=== PATIENT | female | born 1955 | race Caucasian/White ===

== ENCOUNTER → 2019-11-05 13:03 | Outpatient (BNVA) | payer OTHER, SELFPAY | PROVIDERS: Family Provider Nurse Practitioner Family; PCP Family Medicine; Visit Provider Internal Medicine Rheumatology | DX: M05.79 Rheumatoid arthritis with rheumatoid factor of multiple sites without organ or systems involvement (principal); Z79.899 Other long term (current) drug therapy; Z11.59 Encounter for screening for other viral diseases; Z11.1 Encounter for screening for respiratory tuberculosis; M19.041 Primary osteoarthritis, right hand; M19.042 Primary osteoarthritis, left hand | CPT/HCPCS: 36415; 80076; 82306; 82565; 85025; 85651; 86140; 86480; 86704; 86803; 87340; 99204 ==

== ENCOUNTER 2019-11-15 10:29 | Outpatient (CLI) | payer MEDICARE, SELFPAY ==
--- NOTE | 2019-11-15 10:41 | XR_ITS ---
WS: [id number] Right foot, 3 views, 11/15/2019 Clinical Data: rheumatoid arthritis Comparison: Right foot, 08/03/2010. Findings: There is osteoarthritic change of the right first MP joint with cyst formation of the distal medial a spect of the first metatarsal. There is minimal cyst formation of the distal right fifth metatarsal. Minimal cyst formation of the medial talus as it articulates with the navicular is seen. The remainde r of the joints is normal. There is no periarticular demineralization or calcifications. No fractures or dislocations are present. XR/XR foot RT min 3V* [id number] Impression: Osteoarthritic change of the right first MP joint and of the distal right fifth metatarsal.
--- NOTE | 2019-11-15 10:41 | XR_ITS ---
WS: [id number] Left hand, 3 views, 11/15/2019 Clinical Data: rheumatoid arthritis Comparison: Left hand, 08/03/2010. Findings: There is minimal narrowing of the left first MP joint but it has not changed. The remainder of the joint spaces are normal. There are no fractures or dislocations. No periarticular demineraliz ation or calcifications are noted. XR/XR hand LT min 3V* [id number] Impression: Minimal narrowing of the left first MP joint unchanged.
--- NOTE | 2019-11-15 10:41 | XR_ITS ---
WS: [id number] Right hand, 3 views, 11/15/2019 Clinical Data: rheumatoid arthritis Comparison: Right hand, 08/03/2010 Findings: Little change has occurred since the examination of 9 years ago. There is minimal narrowing of the right first MTP joint. The right second and third PIP joints show mild narrowing. No periarti cular demineralization or calcifications are seen. There are no fractures or dislocations. XR/XR hand RT min 3V* [id number] Impression: No change in minimal narrowing at the right first MP joint and the second and t hird DIP joints of the right hand.
--- NOTE | 2019-11-15 10:41 | XR_ITS ---
WS: [id number] Left foot, 3 views, 11/15/2019 Clinical Data: rheumatoid arthritis Comparison: Left foot, 07/12/2012. Findings: There is erosion of the medial distal left first metatarsal and also of the medial proximal base of t he left first proximal phalanx consistent with a bunion. There is narrowing of the left first MP join t. There is cyst formation at the head of the left fifth metatarsal. No periarticular demineralizatio n or erosion is seen. There are no fractures or dislocations. XR/XR foot LT min 3V* [id number] Impression: 1. Bunion at head of left first metatarsal. 2. Cyst formation of the distal left fifth metatarsal.
--- NOTE | 2019-11-15 10:41 | XR_ITS ---
WS: [id number] Chest 2 views, 11/15/2019 Clinical Data: rheumatoid arthritis Comparison: PA and lateral chest, 05/12/2015. Findings: The right lung nodule overlying the right seventh rib and interspace has not changed in siz e or appearance. No other nodules or masses are seen. There is a small scar in the left upper lobe sl ightly decreased in size. The heart is slightly enlarged. The pulmonary vascularity is not increased. No pneumonia or pneumothorax is seen. XR/XR chest 2V* [id number] Impression: 1. No change in right lung pulmonary nodule. 2. Slight decrease in left upper lobe scar.
== END 2019-11-15 10:30 | disposition home or self-care (01) ==
LOC: RADWPI 10:36
PROVIDERS: Family Provider Family Medicine; PCP Family Medicine; Visit Provider Internal Medicine Rheumatology
DX: M05.9 Rheumatoid arthritis with rheumatoid factor, unspecified (principal); M21.612 Bunion of left foot
CPT/HCPCS: 71046; 73130; 73630

== ENCOUNTER → 2019-12-13 11:21 | Outpatient (BNVA) | payer MEDICARE, SELFPAY | PROVIDERS: Family Provider Family Medicine; PCP Family Medicine; Visit Provider Internal Medicine Rheumatology | DX: M05.79 Rheumatoid arthritis with rheumatoid factor of multiple sites without organ or systems involvement (principal); Z79.899 Other long term (current) drug therapy; M19.041 Primary osteoarthritis, right hand; M19.042 Primary osteoarthritis, left hand | CPT/HCPCS: 99214 ==

== ENCOUNTER → 2022-05-25 14:42 | Outpatient (BNVA) | payer MEDICARE, SELFPAY | PROVIDERS: Family Provider Family Medicine; PCP Family Medicine; Visit Provider Nurse Practitioner Family | DX: Z20.822 Contact with and (suspected) exposure to COVID-19 (principal); J02.9 Acute pharyngitis, unspecified | CPT/HCPCS: 87426; 87880 ==

== ENCOUNTER 2022-06-14 14:00 | Outpatient (CLI) | payer MEDICARE, SELFPAY ==
--- NOTE | 2022-06-14 14:49 | MM_ITS ---
WS: [id number] BILATERAL 3D TOMOSYNTHESIS DIGITAL SCREENING MAMMOGRAPHY WITH CAD CLINICAL INFORMATION: SCREENING HISTORY: Screening mammogram. LEFT breast pain and soreness TECHNIQUE: Bilateral CC and MLO views. FINDINGS: The breasts are composed of heterogeneous fibroglandular density tissue, which can limit the detectio n of small underlying mass lesions. No suspicious mass, asymmetry, calcifications, or architectural d istortion. No evidence of malignancy. Vascular calcification. A few incidental punctate calcification s. MM/[place] [id number] IMPRESSION: BI-RADS: 2-Benign FOLLOW UP: 1 Year Follow-up Recommend return to annual screening mammography.
== END 2022-06-14 14:01 | disposition home or self-care (01) ==
LOC: RAD 14:02
PROVIDERS: PCP Family Medicine; Visit Provider Family Medicine
DX: Z12.31 Encounter for screening mammogram for malignant neoplasm of breast (principal)
CPT/HCPCS: 77063; 77067

== ENCOUNTER → 2023-12-21 10:45 | Outpatient (BNVA) | payer MEDICARE, SELFPAY | PROVIDERS: PCP Family Medicine; Visit Provider Nurse Practitioner Family | DX: R53.83 Other fatigue (principal); I10 Essential (primary) hypertension | CPT/HCPCS: 80053; 80061; 85025; 87070; 87205 ==

== ENCOUNTER → 2024-01-23 13:22 | Outpatient (BNVA) | payer MEDICARE, SELFPAY | PROVIDERS: PCP Family Medicine; Visit Provider Nurse Practitioner Family | DX: N89.8 Other specified noninflammatory disorders of vagina (principal) | CPT/HCPCS: 81000; 87086 ==

== ENCOUNTER → 2024-05-21 11:44 | Outpatient (BNVA) | payer MEDICARE, SELFPAY | PROVIDERS: PCP Family Medicine; Visit Provider Nurse Practitioner Family | DX: B37.9 Candidiasis, unspecified (principal); N39.0 Urinary tract infection, site not specified | CPT/HCPCS: 81000; 87070; 87086; 87205 ==

== ENCOUNTER → 2024-05-28 11:55 | Outpatient (BNVA) | payer MEDICARE, SELFPAY | PROVIDERS: PCP Family Medicine; Visit Provider Obstetrics & Gynecology | DX: N95.2 Postmenopausal atrophic vaginitis (principal) | CPT/HCPCS: 88305; 88312; 88342 ==

== ENCOUNTER 2024-09-12 10:40 | Outpatient (CLI) | payer MEDICARE, SELFPAY ==
--- NOTE | 2024-09-12 10:40 | MM_ITS ---
WS: [id number] BILATERAL SCREENING DIGITAL TOMOSYNTHESIS MAMMOGRAM WITH CAD HISTORY: Z12.39 - Encounter for other screening for malignant neop... COMPARISON: 08/24/2023, 06/14/2022 Bilateral CC and MLO views with tomosynthesis and synthetic mammography submitted. Computer aided detection analyzed. Breast composition: The breasts are heterogeneously dense, which may obscure small masses. No suspicious masses, microcalcifications or architectural distortion. Benign bilateral vascular calcifications and a few scattered punctate calcifications. MM/MM scr BI tomosynthesis [id number] IMPRESSION: BI-RADS: 2 - Benign FOLLOW UP: 1 Year Follow-up
== END 2024-09-12 10:41 | disposition home or self-care (01) ==
PROVIDERS: PCP Nurse Practitioner Family; Visit Provider Nurse Practitioner Family
DX: Z12.31 Encounter for screening mammogram for malignant neoplasm of breast (principal); R92.333 Mammographic heterogeneous density, bilateral breasts; R92.1 Mammographic calcification found on diagnostic imaging of breast
CPT/HCPCS: 77063; 77067

== ENCOUNTER → 2024-11-06 11:22 | Outpatient (BNVA) | payer MEDICARE, SELFPAY | PROVIDERS: PCP Nurse Practitioner Family; Visit Provider Nurse Practitioner Family | DX: Z79.899 Other long term (current) drug therapy (principal); E78.5 Hyperlipidemia, unspecified | CPT/HCPCS: 80053; 80061; 85025 ==

== ENCOUNTER 2025-01-31 11:11 | Outpatient (CLI) | payer MEDICARE, SELFPAY ==
--- NOTE | 2025-01-31 11:14 | XR_ITS ---
WS: [id number] Exam: XR ankle RT min 3V* [id number] Date/Time of Exam: 01/31/2025 11:24 AM Reason For Exam: M25.571 - Pain in right ankle and joints of right foot On the oblique view there appears to be a healed or healing fracture of the lower fibula nondisplaced. No other sign of fracture. There is lateral soft tissue swelling. The ankle mortise is equidistant. XR/XR ankle RT min 3V* [id number] IMPRESSION: 1. On the oblique view there is suspicion of a nondisplaced healed or healing f racture of the fibula. Lateral soft tissue swelling. No other significant findi ng.
== END 2025-01-31 11:12 | disposition home or self-care (01) ==
LOC: RAD 11:12
PROVIDERS: PCP Nurse Practitioner Family; Visit Provider Nurse Practitioner Family
DX: M25.571 Pain in right ankle and joints of right foot (principal); M25.471 Effusion, right ankle; Z87.81 Personal history of (healed) traumatic fracture
CPT/HCPCS: 73610

== ENCOUNTER → 2025-02-06 14:06 | Outpatient (BNVA) | payer MEDICARE, SELFPAY | PROVIDERS: PCP Nurse Practitioner Family; Visit Provider Podiatrist Foot & Ankle Surgery | DX: M25.571 Pain in right ankle and joints of right foot (principal); G89.29 Other chronic pain; M1A.9XX1 Chronic gout, unspecified, with tophus (tophi); M67.88 Other specified disorders of synovium and tendon, other site | CPT/HCPCS: 99204 ==

== ENCOUNTER 2025-02-21 13:01 | Outpatient (CLI) | payer MEDICARE, SELFPAY ==
--- NOTE | 2025-02-21 13:00 | MR_ITS ---
WS: [id number] MRI RIGHT ANKLE WITH AND WITHOUT CONTRAST. COMPARISON: Radiograph 01/31/2025 Multiplanar, multisequence imaging is performed with and without contrast. Sagittal and axial T1 fat sat sequences post-MultiHance 14 cc IV. History: Swelling lateral ankle. Possible injury. There is a very large lobulated predominantly cystic mass associated with the peroneal tendons and tendon sheath. Mass extends over a length of 10 cm and begins above the distal fibula. This cystic mass extends distally and ends near the anterior head of the calcaneus. There is encasement of both the peroneal brevis and longus tendons. There is a split tear in the peroneal longus tendon. This is a lobulated mass with predominantly fluid like signal but there are a few additional areas of low signal intensity. On the postcontrast imaging there is enhancement. Portions of this cystic mass only peripherally enhance but there are a few other segments where there is slightly more enhancement. Favor this is most likely very complex ganglion. There is a small amount of adjacent superficial edema. There is an additional cystic mass encasing the extensor hallucis longus tendon over a length of 2.5 cm. Mild peripheral enhancement. Small amount of edema in the distal tip of the fibula. More likely degenerative subchondral cystic changes than fracture. Very minimal marrow edema in the medial malleolus. Mild narrowing of the tibiotalar joint. No osteochondral lesions. There are a few small subchondral cystic changes in the talus. Achilles tendon is normal. Plantar aponeurosis unremarkable. There is a small amount of fluid in the posterior tibialis tendon sheath which is considered normal. There is some increased signal within the posterior tibialis tendon from tendinopathy or a central tear. There does appear to be a very short segment split tear at the level of the malleolus. ATFL is normal. PTFL is being slightly displaced and contacted by the cystic mass in the lateral ankle. Mild thinning and atrophy of the anterior inferior tibiofibular ligament. Normal striations of the deltoid ligament. Spring ligament appears intact although there is some increased T2 signal but this does not appear to be acute. Normal calcaneofibular ligament. Normal sinus Tarsi. MR/MR ankle RT wo/w con [id number] IMPRESSION: 1. Large lobulated predominantly cystic mass with a few low-level hypointensit ies associated with the peroneal tendons and tendon sheath. There is encasement of the peroneal brevis and longus and displacement by this mass. This mass per ipherally enhances. I favor this is most likely a very large ganglion. This cys tic mass extends over a length of 10 cm. 2. Split tear in the peroneal longus tendon. 3. Short segment split tear posterior tibialis tendon. 4. Additional cystic mass associated with the extensor hallucis longus tendon over a length of 2.5 cm most likely a ganglion also.
[2025-02-21] MEDS: gadobenate dimeglumine 20 mL vial 15 ML IV (13:44)
== END 2025-02-21 13:02 | disposition home or self-care (01) ==
LOC: RAD 13:05
PROVIDERS: PCP Nurse Practitioner Family; Visit Provider Podiatrist Foot & Ankle Surgery
DX: M25.571 Pain in right ankle and joints of right foot (principal); G89.29 Other chronic pain; M1A.9XX1 Chronic gout, unspecified, with tophus (tophi); R93.6 Abnormal findings on diagnostic imaging of limbs; S96.811A Strain of other specified muscles and tendons at ankle and foot level, right foot, initial encounter; X58.XXXA Exposure to other specified factors, initial encounter; R60.0 Localized edema; M25.871 Other specified joint disorders, right ankle and foot; M89.8X7 Other specified disorders of bone, ankle and foot
CPT/HCPCS: 73723; A9577

== ENCOUNTER → 2025-03-11 14:03 | Outpatient (BNVA) | payer MEDICARE, SELFPAY | PROVIDERS: PCP Nurse Practitioner Family; Visit Provider Podiatrist Foot & Ankle Surgery | DX: M67.88 Other specified disorders of synovium and tendon, other site (principal); M67.471 Ganglion, right ankle and foot; S86.311A Strain of muscle(s) and tendon(s) of peroneal muscle group at lower leg level, right leg, initial encounter; M66.871 Spontaneous rupture of other tendons, right ankle and foot; X58.XXXA Exposure to other specified factors, initial encounter | CPT/HCPCS: 99214 ==